=== PATIENT | male | born 1955 | race Caucasian/White ===

== ENCOUNTER → 2018-12-02 | Day surgery (SDC) | payer BC ==
[~2018-12-02] MED LIST: ATOR40TA59 PO; DICL75TA PO; ESCITALOPRAM OX10 MG PO; FENO200C PO; IV RINGERS,LACTATED 1000ML 1,000 ML IV SCH; LIDOCAINE 1% PF 2 ML VIAL. ID PRN; LIDOCAINE 1% PF 2 ML VIAL. ONE; MIDAZOLAM HCL/PF 2 MG/2 ML VIAL. IV PRN; OMEP20TA8 PO; PROPOFOL 20 ML IV ONE; fentaNYL PF VIAL 100 MCG/2 ML VIAL IV PRN
[2018-12-02 08:17] VITALS: BP 125/70
--- NOTE | 2018-12-02 09:02 | HP ---
ADMIT DATE: 12/02/2018 REFERRING PHYSICIAN: Dr. Michael Agosto. REASON: Colorectal screening. HISTORY OF PRESENT ILLNESS: A 63-year-old male with past medical history significant for hyperlipidemia as well as gastroesophageal reflux disease, osteoarthritis, is seen for a screening colon exam. Bowel habits are regular without diarrhea or constipation. There has been no melena and/or hematochezia. Weight and appetite are stable. Family history significant for colon polyps with his mother. He is otherwise without additional complaints. PAST MEDICAL HISTORY: Hyperlipidemia, osteoarthrosis, gastroesophageal reflux disease. ALLERGIES: None. MEDICATIONS: Include atorvastatin, diclofenac, citalopram, fenofibrate and omeprazole. SOCIAL HISTORY: Nonsmoker, nondrinker. FAMILY HISTORY: Significant for colon polyps in mother. PAST SURGICAL HISTORY: Status post back surgery, status post vasectomy. REVIEW OF SYSTEMS: As per records. PHYSICAL EXAMINATION: GENERAL: A well-nourished, well-developed male. VITAL SIGNS: Temperature is 97.6, pulse 68, respirations 18. HEENT: Normocephalic and atraumatic. Pupils and extraocular movements are not tested. Sclerae anicteric. NECK: Supple. LUNGS: Clear. CARDIOVASCULAR: Reveals an S1, S2 without S3, S4 or appreciable murmur. ABDOMEN: Reveals a soft abdomen, normal bowel sounds without appreciable hepatosplenomegaly. EXTREMITIES: Reveal no cyanosis, clubbing or edema. IMPRESSION: Colorectal screening is warranted at this time. Risks and benefits of procedure including risk of hemorrhage and perforation discussed. The patient is willing to proceed. I thank you for allowing us to consult in the patient's care. TAY CHEN MD DR: EDU/lelia JOB#: [id number] / [id number] MICHAEL Hui MD
== END | disposition home or self-care (01) ==
LOC: SURG 05:45
PROVIDERS: ATTEND Internal Medicine Gastroenterology
DX: Z12.11 Encounter for screening for malignant neoplasm of colon (principal); K64.0 First degree hemorrhoids; K21.9 Gastro-esophageal reflux disease without esophagitis; E78.5 Hyperlipidemia, unspecified; M19.90 Unspecified osteoarthritis, unspecified site; Z79.899 Other long term (current) drug therapy; Z83.71 Family history of colonic polyps; Z98.52 Vasectomy status; Z98.890 Other specified postprocedural states
CPT/HCPCS: 45378; J2704

== ENCOUNTER → 2021-08-21 | Outpatient (CLI) | payer OTHER ==
[2018-12-02 08:17] VITALS: BP 125/70
[~2021-08-21] MED LIST changes: -IV RINGERS,LACTATED 1000ML 1,000 ML IV SCH; -LIDOCAINE 1% PF 2 ML VIAL. ID PRN; -LIDOCAINE 1% PF 2 ML VIAL. ONE; -MIDAZOLAM HCL/PF 2 MG/2 ML VIAL. IV PRN; -PROPOFOL 20 ML IV ONE; -fentaNYL PF VIAL 100 MCG/2 ML VIAL IV PRN
--- NOTE | 2021-08-21 16:33 | KCIC ---
EXAM: Thoracic spine 3 views. HISTORY: Thoracic back pain. COMPARISON: None. FINDINGS: No fractures are identified. Alignment is maintained. Intervertebral disc heights are maint ained. There is moderate endplate are mildly within the mid and lower thoracic spine. Calcified granu yuki are noted. IMPRESSION: 1. No fracture or clear degenerative change for patient age. Electronically signed by: Chana Isaac MD (08/21/2021 4:31 PM) [id number]
== END ==
LOC: KCIC 12:30
PROVIDERS: ATTEND Family Medicine
DX: M89.8X1 Other specified disorders of bone, shoulder (principal); J84.10 Pulmonary fibrosis, unspecified
CPT/HCPCS: 72072

== ENCOUNTER → 2022-02-23 | Outpatient (CLI) | payer MEDICARE ==
[2018-12-02 08:17] VITALS: BP 125/70
[~2022-02-23] MED LIST changes: -FENO200C PO; +FENO200C27 PO; -OMEP20TA8 PO; +OMEP20TA91 PO
--- NOTE | 2022-02-24 18:02 | CARD ---
MR#: [id number] Date of Study: 02/23/2022 Ordering Physician: RODNEY ARMSTRONG, Referring Physician: RODNEY ARMSTRONG, Tech: Felix Sherman [facility] APPROVED REPORT EXAM: Two-dimensional and M-mode echocardiogram with Doppler and color Doppler. Other Information Quality : AverageHR: 65bpm Rhythm : NSR INDICATION Syncope 2D DIMENSIONS Left Atrium(2D)4.0 (1.6-4.0cm)IVSd1.1 (0.7-1.1cm) Aortic Root(2D)3.2 (2.0-3.7cm)LVDd4.6 (3.9-5.9cm) LVOT Diameter1.9 (1.8-2.4cm)PWd1.0 (0.7-1.1cm) LVDs2.8 (2.5-4.0cm)FS (%) 38.6 % SV67.6 ml Aortic Valve AoV Peak Michael.100.2cm/sAoV VTI18.2cm AO Peak GR.4.0mmHgLVOT Peak Michael.74.8cm/s LVOT VTI 14.95cmAO Mean GR.2mmHg FABY (VMAX)1.07av5BTE (VTI)2.33cm2 Mitral Valve MV E Mmgrjdsz08.9cm/sMV DECEL [id number] MV A Qaifhzhc54.4cm/sMV FVL00lj E/A Ratio0.7MVA (PHT)3.30cm2 TDI E/Lateral E'7.4E/Medial E'8.8 Pulmonary Valve PV Peak Bqaiiphv249.3cm/sPV Peak Grad.5mmHg Tricuspid Valve TR P. Kztbwlcb990jh/sTR Peak Gr.23mmHg Pulmonary Vein S1 Huavigpk06.5cm/sD2 Fziqsakg87.5cm/s LEFT VENTRICLE The left ventricle is normal size. There is normal left ventricular wall thickness. The left ventricu lar systolic function is normal and the ejection fraction is within normal range. Left ventricular ej ection fraction of 50 to 55%. There is normal LV segmental wall motion. Transmitral Doppler flow reuben pau is Grade I-abnormal relaxation pattern. No left ventricle thrombus noted on this study. There is no ventricular septal defect visualized. There is no left ventricular aneurysm. There is no mass note d in the left ventricle. RIGHT VENTRICLE The right ventricle is normal size. There is normal right ventricular wall thickness. The right ventr icular systolic function is normal. ATRIA The left atrium is mildly dilated. The right atrium size is normal. The interatrial septum is intact with no evidence for an atrial septal defect or patent foramen ovale as noted on 2-D or Doppler imagi ng. AORTIC VALVE The aortic valve is normal in structure and function. Doppler and Color Flow revealed no significant aortic regurgitation. There is no significant aortic valvular stenosis. There is no aortic valvular v egetation. MITRAL VALVE The mitral valve is normal in structure and function. There is no evidence of mitral valve prolapse. There is no mitral valve stenosis. Doppler and Color Flow revealed no mitral valve regurgitation note d. TRICUSPID VALVE The tricuspid valve is normal in structure and function. Doppler and Color Flow revealed trace tricus pid regurgitation. There is no tricuspid valve prolapse or vegetation. PULMONIC VALVE The pulmonary valve is normal in structure and function. Doppler and Color Flow revealed no pulmonic valvular regurgitation. There is no pulmonic valvular stenosis. GREAT VESSELS The aortic root is normal in size. The ascending aorta is normal in size. The pulmonary artery is nor mal. The IVC is normal in size and collapses >50% with inspiration. PERICARDIAL EFFUSION There is no pleural effusion. There is no evidence of significant pericardial effusion. Critical Notification Critical Value: No <Conclusion> The left ventricle is normal size. The left ventricular systolic function is normal and the ejection fraction is within normal range. Left ventricular ejection fraction of 50 to 55%. Doppler and Color Flow revealed no significant aortic regurgitation. There is no significant aortic valvular stenosis. Doppler and Color Flow revealed no mitral valve regurgitation noted. Doppler and Color Flow revealed trace tricuspid regurgitation. Signed by : Rodney Armstrong MD Electronically Approved : 02/24/2022 18:01:46
== END ==
LOC: ECHO 08:54
PROVIDERS: ATTEND Internal Medicine Cardiovascular Disease
DX: R55 Syncope and collapse (principal); R01.1 Cardiac murmur, unspecified
CPT/HCPCS: 93306; C8929